=== PATIENT | female | born 2000 | race Caucasian/White ===

== ENCOUNTER 2019-04-12 19:05 | Emergency (ER) | payer BC, SELFPAY ==
[2019-04-12] MEDS: LACTATED RINGERS 1,000 ML 999 ML IV CONT (19:27)
[2019-04-12] MEDS: METOCLOPRAMIDE HCL INJ 10 MG/2 ML VIAL IV PUSH (19:27)
[2019-04-12 19:28] VITALS: BP 140/84; PULSE 99; RESP 20; TEMP 36.3; O2SAT 100
--- NOTE | 2019-04-12 19:49 | ED.NAVMDI ---
HPI - Nausea/Vomiting/Diarrhea General Chief complaint: Nausea/Vomiting/Diarrhea Stated complaint: N/V/D Time Seen by Provider: 04/12/19 19:11 Source: patient and RN notes reviewed Mode of arrival: ambulatory Limitations: no limitations History of Present Illness HPI Narrative: Pt is a 18 y/o female presenting to the ED c/o N/V. Pt states she was seen at this ED recently and was diagnosed with Influenza A. Pt states she has presented back due to not being able to hold down fluids. N/V started earlier this morning. Pt also reports generalized myalgia, chills, and diarrhea, but denies vaginal bleeding, vaginal discharge, TYLER, cough, rhinorrhea, or congestion. Pt states she was prescribed nausea medication but has been unable to take any due to the pharmacy being closed. Pt states she is currently 18 weeks with her 1st . Pt notes she goes to [facility]. Pt denies any other medical problems or previous surgeries. Pt did not get a flu shot this year. Pertinent past history: other (Influenza) Onset (ago): unknown (Earlier this morning) Associated symptoms: myalgias (Generalized), diaphoresis, fever/chills (Chills) and other (Diarrhea) Related Data Allergies Allergy/AdvReac Type Severity Reaction Status Date / Time No Known Allergies Allergy Mild Verified 07/03/10 13:24 Review of Systems Review of Systems: All systems reviewed & are unremarkable except as noted in HPI and below Constitutional: Constitutional: Reports chills ENT: Denies nasal congestion and Denies other (Rhinorrhea) Respiratory: Respiratory: Reports cough Gastrointestinal: Gastrointestinal: Reports diarrhea, Reports nausea and Reports vomiting Genitourinary: Genitourinary: Denies abnormal vaginal bleeding and Denies vaginal discharge Musculoskeletal: Musculoskeletal: Reports myalgias (Generalized) Neurologic: Reports headache(s) [facility] Past Medical History Medical History Healthy adult Surgical History Surgical History No history of previous surgery Social History Social History Smoking status: Never smoker Gender identity (if verbalized by the patient): Female Exam Const: General: no acute distress, alert and ill appearing (Mildly) Nutritional Appearance: obese Orientation/consciousness: oriented x3 Limitations: no limitations HENMT: Mouth: Yes lip normal and Yes moist mucous membranes Resp: Effort & Inspection: normal respiratory effort Auscultation: clear to auscultation bilaterally Cardio: Rate: regular rate Rhythm: regular rhythm GI: Inspection: non-distended GI Palp: Yes soft and No tender Auscultation: normal bowel sounds Skin: General skin exam: normal color Neuro: General: oriented x3 and moves all extremities Cognition (Neuro): normal cognition Speech: normal speech Extrem: General: normal to inspection, full ROM and no clubbing, cyanosis or edema Psych: Mental Status: mental status grossly normal Affect: normal affect Attitude: cooperative Course Course Emergency Course: Patient given Reglan and additional liter of IV fluids. Patient given oral hydration in the emergency department. Patient reports improvement in nausea with Reglan and is able to tolerate oral hydration without further nausea and vomiting. Will send home with prescription for Reglan. Vital Signs Vital signs: Vital Signs Temperature 97.3 F L 04/12/19 19:28 Pulse Rate 99 04/12/19 19:28 Respiratory Rate 04/12/19 19:28 Blood Pressure 140/84 04/12/19 19:28 Pulse Oximetry 100 04/12/19 19:28 Temperature 97.3 F L 04/12/19 19:28 Pulse Rate 99 04/12/19 19:28 Respiratory Rate 04/12/19 19:28 Blood Pressure 140/84 04/12/19 19:28 Pulse Oximetry 100 04/12/19 19:28 Critical Care Time Critical Care Time Critical Care Time: No Discharge Plan Discharge C
[2019-04-12 21:37] VITALS: BP 122/80; PULSE 70; RESP 20; TEMP 37.1; O2SAT 98
--- NOTE | 2019-04-18 11:12 | PC.NURSE ---
LATE ENTRY This note is being entered to document information to the patient's record. The following information was omitted on 04/12/19, by JOHN Robb. Pt received 1L LR per order and completed 1 hr after administration.
== END 2019-04-12 21:38 | disposition home or self-care (01) ==
PROVIDERS: Emergency Provider Emergency Medicine
DX: O99.512 Diseases of the respiratory system complicating pregnancy, second trimester (principal); J10.1 Influenza due to other identified influenza virus with other respiratory manifestations; E86.0 Dehydration; R11.2 Nausea with vomiting, unspecified; Z3A.18 18 weeks gestation of pregnancy
CPT/HCPCS: 96361; 96374; 96375; 99284; J1200; J2765; J7120

== ENCOUNTER 2019-08-12 10:00 | Outpatient (CLI) | payer BC, SELFPAY ==
[2019-08-12 10:31] VITALS: BP 127/72; PULSE 100
[2019-08-12 10:44] LABS: Creatinine Urine 140.7 mg/dL; Total Protein Urine Random 11 mg/dL
[2019-08-12 10:46] VITALS: BP 112/71; PULSE 93
[2019-08-12 10:46] LABS: Basophils Percent Auto 0.4 % (0.2-1.2); Eosinophils Absolute Auto 0.1 K/mm3 (0-0.3); Eosinophils Percent Auto 1.4 % (0-4.4); Hematocrit 35.6 % (37.0-47.0); Hemoglobin 11.6 g/dL (12.0-15.0); Immature Granulocyte Absolute 0.05 K/mm3 (0.00-0.031); Immature Granulocyte Percent A 0.5 % (0-0.5); Lymphocytes Absolute Auto 1.45 K/mm3 (0.9-3.2); Lymphocytes Percent Auto 15.7 % (18.3-44.2); Mean Corpuscular HGB Conc 32.6 g/dl (32-36); Mean Corpuscular Hemoglobin 29.3 pg (26-34); Mean Corpuscular Volume 89.9 fl (80-100); Mean Platelet Volume 11.1 fl (7.4-10.4); Monocytes Absolute Auto 0.4 K/mm3 (0.1-0.6); Monocytes Percent Auto 4.6 % (2.6-8.5); Neutrophils Absolute Auto 7.1 K/mm3 (1.3-6.7); Neutrophils Percent Auto 77.4 % (45.5-73.1); Platelet Count Result 175 k/mm3 (150-375); Red Blood Count 3.96 M/mm3 (4.2-5.4); Red Cell Distribution Width 14.2 % (11.5-14.5); White Blood Count 9.2 K/mm3 (4.5-10.0)
[2019-08-12 10:57] LABS: Alanine Aminotransferase 10 U/L (4-35); Albumin Level 3.7 g/dL (3.5-5.1); Alkaline Phosphatase 87 U/L (38-126); Aspartate Amino Transferase 14 U/L (14-36); Bilirubin,Total 0.1 mg/dL (0.2-1.3); Blood Urea Nitrogen 8 mg/dL (7-17); Calcium 8.7 mg/dL (8.4-10.2); Carbon Dioxide 20 mmol/L (22-30); Chloride 107 mmol/L (98-107); Estimated Glomerular Filt Rate > 60; Glucose 122 mg/dL (65-105); Sodium 135 mmol/L (137-145); Uric Acid 3.2 mg/dL (2.5-7.5)
[2019-08-12 10:57] LABS: Add Urine Microscopic? YES; Appearance Urine Clear (Clear); Bacteria Urine Trace /hpf; Bilirubin Urine Negative (Negative); Blood Urine Negative (Negative); Color Urine Yellow (Yellow); Glucose Urine UA 1+ mg/dL (Negative); Ketones Urine Negative (Negative); Leukocyte Esterase Ur Negative LEU/UL (NEGATIVE); Mucus Urine Rare /lpf; Nitrate Urine Negative (Negative); Protein Urine 1+ mg/dL (Negative); RBC Urine 0-2 /hpf (0-2); Specific Grav Ur 1.025 (1.001-1.035); Squamous Epithelial Cell Urine Few /hpf (Few); Urobilinogen Urine Negative mg/dL (<2.0); WBC Urine 0-3 /hpf (0-3)
[2019-08-12 11:01] VITALS: BP 106/82; PULSE 96
== END 2019-08-12 11:15 | disposition home or self-care (01) ==
LOC: ANHOBOP 10:10 → ANHOBPP 10:10
PROVIDERS: Family Provider Obstetrics & Gynecology; PCP Internal Medicine; Visit Provider Obstetrics & Gynecology
DX: O13.9 Gestational [pregnancy-induced] hypertension without significant proteinuria, unspecified trimester (principal); Z3A.00 Weeks of gestation of pregnancy not specified
CPT/HCPCS: 36415; 59025; 80053; 81001; 82570; 84156; 84550; 85025; 87086; 87088; 99199

== ENCOUNTER 2019-09-01 10:29 | Outpatient (RCR) | payer BC, SELFPAY ==
[2019-09-01 11:09] VITALS: BP 118/71; PULSE 101
== END 2019-10-06 13:43 | disposition home or self-care (01) ==
LOC: ANHOBOP 10:29
PROVIDERS: PCP Internal Medicine; Visit Provider Obstetrics & Gynecology
DX: O26.893 Other specified pregnancy related conditions, third trimester (principal); Z3A.38 38 weeks gestation of pregnancy
CPT/HCPCS: 59025

== ENCOUNTER 2019-09-02 15:33 | Outpatient (CLI) | payer BC, SELFPAY ==
--- NOTE | 2019-09-02 16:20 | PC.NURSE ---
Called Kota Sal CNM with pt status. ROM plus negative. No contraction seen. Reactive tracing. July D/C home and follow up for next scheduled ultrasound to check KOLE.
[2019-09-02 16:25] VITALS: BP 119/63; PULSE 88
== END 2019-09-02 16:45 | disposition home or self-care (01) ==
LOC: ANHOBOP 16:39
PROVIDERS: PCP Internal Medicine; Visit Provider Obstetrics & Gynecology
DX: O41.8X90 Other specified disorders of amniotic fluid and membranes, unspecified trimester, not applicable or unspecified (principal)
CPT/HCPCS: 59025; 84112

== ENCOUNTER 2019-09-06 16:43 | Inpatient (IN) | payer BC, SELFPAY ==
[2019-09-06] VITALS (15 sets, daily range): BP systolic 96–147; BP diastolic 42–102; PULSE 84–94; BMI 49.6
[2019-09-06 17:39] LABS: Basophils Percent Auto 0.4 % (0.2-1.2); Eosinophils Absolute Auto 0.2 K/mm3 (0-0.3); Eosinophils Percent Auto 1.7 % (0-4.4); Hematocrit 38.3 % (37.0-47.0); Hemoglobin 12.5 g/dL (12.0-15.0); Immature Granulocyte Absolute 0.06 K/mm3 (0.00-0.031); Immature Granulocyte Percent A 0.6 % (0-0.5); Lymphocytes Absolute Auto 1.82 K/mm3 (0.9-3.2); Mean Corpuscular HGB Conc 32.6 g/dl (32-36); Mean Corpuscular Hemoglobin 29.3 pg (26-34); Mean Corpuscular Volume 89.7 fl (80-100); Monocytes Absolute Auto 0.6 K/mm3 (0.1-0.6); Monocytes Percent Auto 5.7 % (2.6-8.5); Neutrophils Percent Auto 72.6 % (45.5-73.1); Platelet Count Result 175 k/mm3 (150-375); Red Blood Count 4.27 M/mm3 (4.2-5.4); Red Cell Distribution Width 14.9 % (11.5-14.5); White Blood Count 9.6 K/mm3 (4.5-10.0)
--- NOTE | 2019-09-06 17:39 | LDADM ---
This patient, Norris Kemp, was admitted to Labor/Delivery/Recovery 107 on 09/06/19 at 16:43. Plans for labor, pain management and were discussed with patient. Patient/family oriented to hospital policies and general routines including ID bracelet, bed and alarms, visiting hours, pain management, procedures, bathroom and other care routines, personal items, smoking policy, room service/diet and guest tray routines, infant security routines, and visiting hours. Patient/Family are encouraged to report perceived risks to care and to ask questions if they do not understand what they are told or what they should do. See OBIX for further documentation.
[2019-09-06] MEDS: DINOPROSTONE 10 MG VAG INSERT VAGINAL (17:49)
[2019-09-06] MEDS: LACTATED RINGERS 1,000 ML 125 ML IV CONT (18:30)
[2019-09-06] MEDS: AMPICILLIN 2 GM/NS 100 ML 2 GM/100 ML BAG IVPB (18:30)
--- NOTE | 2019-09-06 19:03 | PC.NURSE ---
see obix for bp reading and notes r/t bp's and pt positions during bp readings. dr curry on unit and bp's reviewed w dr curry, dr cardenas informed that pt needs blood redrawn for type and screen, orders recieved to draw pi labs w type and screen redraw. s chelly cnm managing pt care and is to be called to give cnm pt update.
[2019-09-06 19:46] LABS: Creatinine Urine 148.8 mg/dL; Total Protein Urine Random 8 mg/dL
[2019-09-06 19:47] LABS: Add Urine Microscopic? NO; Appearance Urine Clear (Clear); Bilirubin Urine Negative (Negative); Blood Urine Negative (Negative); Color Urine Yellow (Yellow); Glucose Urine UA Negative (Negative); Ketones Urine Negative (Negative); Leukocyte Esterase Ur Negative LEU/UL (NEGATIVE); Nitrate Urine Negative (Negative); Protein Urine Negative (Negative); Specific Grav Ur 1.025 (1.001-1.035); Urobilinogen Urine Negative mg/dL (<2.0)
[2019-09-06 19:52] LABS: Alanine Aminotransferase 9 U/L (4-35); Albumin Level 3.5 g/dL (3.5-5.1); Alkaline Phosphatase 115 U/L (38-126); Aspartate Amino Transferase 13 U/L (14-36); Bilirubin,Total 0.2 mg/dL (0.2-1.3); Blood Urea Nitrogen 8 mg/dL (7-17); Calcium 8.4 mg/dL (8.4-10.2); Carbon Dioxide 21 mmol/L (22-30); Chloride 108 mmol/L (98-107); Estimated CRCL calculation 187 ml/min; Estimated Glomerular Filt Rate > 60; Glucose 96 mg/dL (65-105); Potassium 3.6 mmol/L (3.4-5.0); Sodium 135 mmol/L (137-145); Uric Acid 3.4 mg/dL (2.5-7.5)
[2019-09-06] MEDS: AMPICILLIN 1 GM/NS 50 ML 1 GM/50 ML BAG IVPB (23:01)
--- NOTE | 2019-09-06 23:20 | WPDOBADMIT ---
Obstetrics - Admit Note Admission Note: record reviewed. No pertinent additions to the history and/or any subsequent changes in the physical findings that are not consistent with the expected course of the were found. MIL 39.1 KOLE, 5 cm, cervadil, anticipate vaginal delivery Additions to the history and/or subsequent changes in the physical findings follow. None.
[2019-09-07] VITALS (291 sets, daily range): BP systolic 91–177; BP diastolic 40–125; PULSE 69–128; TEMP 36.2–37.7; O2SAT 96–100
[2019-09-07] MEDS: AMPICILLIN 1 GM/NS 50 ML 1 GM/50 ML BAG IVPB ×6 (02:28→20:26)
[2019-09-07] MEDS: ONDANSETRON INJ 4 MG/2 ML VIAL IV PUSH ×3 (05:35→23:03)
[2019-09-07] MEDS: OXYTOCIN 30 UNITS/NS 500 ML 30 UNITS/500 ML BAG 6 UNITS IV CONT (07:07)
[2019-09-07] MEDS: LACTATED RINGERS 1,000 ML 125 ML IV CONT ×5 (07:09→23:03)
--- NOTE | 2019-09-07 07:51 | WPDOBADMIT ---
Obstetrics - Admit Note Admission Note: 18 y/o G1 here for induction of labor. History of borderline oligohydramnios. SVE /-2 AROM small amount of clear odorless fluid. record reviewed. No pertinent additions to the history and/or any subsequent changes in the physical findings that are not consistent with the expected course of the were found. Additions to the history and/or subsequent changes in the physical findings follow. None.
[2019-09-07] MEDS: METOCLOPRAMIDE HCL INJ 10 MG/2 ML VIAL IV PUSH (08:15)
--- NOTE | 2019-09-07 11:14 | WPDANESEPP ---
Anes - Eval Pre Procedure Procedure: Labor Epidural Date/Time: 09/07/19 11:14 Surgeon: Aris Preop Diagnosis: Labor Pain Pre Op Diagnosis: iol Patient Data Age: 18 Gender: F Height: 5 ft 2 in Weight: 123.18 kg Last Vital Signs Temp 36.3 C L 09/07/19 09:17 Pulse 81 09/07/19 11:13 BP 147/81 H 09/07/19 11:13 Pulse Ox 97 09/07/19 11:13 Allergies Allergy/AdvReac Type Severity Reaction Status Date / Time No Known Allergies Allergy Mild Verified 07/03/10 13:24 Home Medications Medication Instructions Recorded Confirmed Type [id number] fumarate-FA 1 tablet PO DAILY 08/12/19 09/01/19 History [] ferrous sulfate [Slow Fe] 1 mg PO DAILY 08/12/19 09/01/19 History Laboratory Tests 09/06/19 09/06/19 09/06/19 17:27 17:27 19:24 WBC 9.6 K/mm3 K/mm3 (4.5-10.0) RBC 4.27 M/mm3 M/mm3 (4.2-5.4) Hgb 12.5 g/dL g/dL (12.0-15.0) Hct 38.3 % % (37.0-47.0) MCV 89.7 fl fl (80-100) MCH 29.3 pg pg (26-34) MCHC 32.6 g/dl g/dl (32-36) RDW 14.9 % H % (11.5-14.5) Plt Count 175 k/mm3 k/mm3 (150-375) MPV 11.0 fl H fl (7.4-10.4) Immature Gran % (Auto) 0.6 % H % (0-0.5) Neut % (Auto) 72.6 % % (45.5-73.1) Lymph % (Auto) 19.0 % % (18.3-44.2) [place] % (Auto) 5.7 % % (2.6-8.5) Eos % (Auto) 1.7 % % (0-4.4) Baso % (Auto) 0.4 % % (0.2-1.2) Lymph # (Auto) 1.82 K/mm3 K/mm3 (0.9-3.2) [place] # (Auto) 0.6 K/mm3 K/mm3 (0.1-0.6) Eos # (Auto) 0.2 K/mm3 K/mm3 (0-0.3) Baso # (Auto) 0.0 K/mm3 K/mm3 (0.0-0.1) Abs Immat Gran (auto) 0.06 K/mm3 H K/mm3 (0.00-0.031) Absolute Neuts (auto) 7.0 K/mm3 H K/mm3 (1.3-6.7) Absolute Nucleated RBC 0.0 K/mm3 K/mm3 (0.0-0.012) Nucleated RBC % 0.0 % % (0.0-0.2) Sodium Potassium Chloride Carbon Dioxide BUN Creatinine Estim Creat Clear Calc Estimated GFR Glucose Uric Acid Calcium Total Bilirubin AST ALT Alkaline Phosphatase Total Protein Albumin Urine Color Urine Appearance Urine pH Ur Specific [place] Urine Protein Urine Glucose (UA) Urine Ketones Ur Blood (Man) Urine Nitrate Urine Bilirubin Urine Urobilinogen Ur Leukocyte Esterase U Random Total Protein Urine Creatinine RPR Pending Blood Type A Positive Antibody Screen Negative 09/06/19 09/06/19 09/06/19 19:24 19:24 19:24 WBC RBC Hgb Hct MCV MCH MCHC RDW Plt Count MPV Immature Gran % (Auto) Neut % (Auto) Lymph % (Auto) [place] % (Auto) Eos % (Auto) Baso % (Auto) Lymph # (Auto) [place] # (Auto) Eos # (Auto) Baso # (Auto) Abs Immat Gran (auto) Absolute Neuts (auto) Absolute Nucleated RBC Nucleated RBC % Sodium 135 mmol/L L mmol/L (137-145) Potassium 3.6 mmol/L mmol/L (3.4-5.0) Chloride 108 mmol/L H mmol/L (98-107) Carbon Dioxide 21 mmol/L L mmol/L (22-30) BUN 8 mg/dL mg/dL (7-17) Creatinine 0.50 mg/dL L mg/dL (0.7-1.0) Estim Creat Clear Calc 187 ml/min ml/min Estimated GFR > 60 (59 - ) Glucose 96 mg/dL mg/dL (65-105) Uric Acid 3.4 mg/dL mg/dL (2.5-7.5
[2019-09-07 11:35] LABS: Rapid Plasma Reagin Non-Reactive (NonReactive)
[2019-09-08] VITALS (205 sets, daily range): BP systolic 59–204; BP diastolic 26–178; PULSE 73–208; RESP 16–20; TEMP 36.3–37.7; O2SAT 95–100
[2019-09-08] MEDS: SODIUM CHLORIDE 0.9% IV 300 ML 600 ML I-UTERINE (00:11)
[2019-09-08] MEDS: AMPICILLIN 1 GM/NS 50 ML 1 GM/50 ML BAG IVPB ×2 (00:31→04:50)
[2019-09-08] MEDS: LACTATED RINGERS 1,000 ML 125 ML IV CONT ×2 (02:04→10:39)
--- NOTE | 2019-09-08 08:31 | PM.IMHP ---
H&P: HPI History of Present Illness Chief complaint: iol Narrative: Norris Kemp is a 18 year old female 39 weeks gestation, Failed induction, and Failure of fetus to descend. is complicated by obesity and oligohydramnios. Pt is currently afebrile. Plan to move forward with section. Dr. Hurst notified. Review of Systems Review of Systems: All systems reviewed & are unremarkable except as noted in HPI and below PMFSH Past Medical History Medical History Healthy adult Surgical History Surgical History No history of previous surgery Family History Family History Grandparent Diabetes mellitus Grandparent Cancer of lung Social History Social History Years smoked: 2 Smoking status: Former smoker Tobacco type: cigarettes Second hand tobacco smoke exposure: No Substance use: never Gender identity (if verbalized by the patient): Female Spiritual care concerns: No Meds Home Medications and Allergies Home Medications Medication Instructions Recorded Confirmed Type [id number] fumarate-FA 1 tablet PO DAILY 08/12/19 09/01/19 History [] ferrous sulfate [Slow Fe] 1 mg PO DAILY 08/12/19 09/01/19 History Allergies Allergy/AdvReac Type Severity Reaction Status Date / Time No Known Allergies Allergy Mild Verified 07/03/10 13:24 Vital Signs Vital Signs - 24 hr 09/07/19 08:46 09/07/19 09:01 09/07/19 09:16 Temperature Pulse Rate 80 82 81 Blood Pressure 125/68 135/84 142/88 H Pulse Oximetry 09/07/19 09:17 09/07/19 09:31 09/07/19 09:46 Temperature 36.3 C L Pulse Rate 92 91 Blood Pressure 155/92 H 126/92 H Pulse Oximetry 09/07/19 10:01 09/07/19 10:13 09/07/19 10:15 Temperature Pulse Rate 87 87 Blood Pressure 123/73 143/89 H Pulse Oximetry 100 09/07/19 10:16 09/07/19 10:18 09/07/19 10:20 Temperature Pulse Rate 87 77 78 Blood Pressure 146/91 H 137/84 139/71 Pulse Oximetry 98 09/07/19 10:21 09/07/19 10:23 09/07/19 10:25 Temperature Pulse Rate 79 88 87 Blood Pressure 141/73 H 145/73 H 135/81 Pulse Oximetry 100 09/07/19 10:27 09/07/19 10:28 09/07/19 10:29 Temperature Pulse Rate 86 87 Blood Pressure 146/74 H 151/90 H Pulse Oximetry 99 09/07/19 10:31 09/07/19 10:33 09/07/19 10:35 Temperature Pulse Rate 89 81 96 Blood Pressure 152/76 H 145/67 H 146/83 H Pulse Oximetry 98 09/07/19 10:37 09/07/19 10:38 09/07/19 10:39 Temperature Pulse Rate 96 86 Blood Pressure 150/86 H 150/76 H Pulse Oximetry 99 09/07/19 10:41 09/07/19 10:43 09/07/19 10:45 Temperature Pulse Rate 78 88 83 Blood Pressure 151/79 H 137/80 142/78 H Pulse Oximetry 98 09/07/19 10:47 09/07/19 10:48 09/07/19 10:49 Temperature Pulse Rate 76 69 Blood Pressure 146/73 H 145/77 H Pulse Oximetry 97 09/07/19 10:51 09/07/19 10:53 09/07/19 10:55 Temperature Pulse Rate 75 72 73 Blood Pressure 148/69 H 145/75 H 142/72 H Pulse Oximetry 98 09/07/19 10:57 09/07/19 10:58 09/07/19 10:59 Temperature Pulse Rate 79 71 Blood Pressure 142/79 H 141/76 H Pulse Oximetry 98 09/07/19 11:01 09/07/19 11:03 09/07/19 11:05 Temperature Pulse Rate 77 72 72 Blood Pressure 141/74 H 141/68 H 136/71 Pulse Oximetry 98 09/07/19 11:07 09/07/19 11:08 09/07/19 11:09 Temperature Pulse Rate 76 72 Blood Pressure 132/82 132/73 Pulse Oximetry 98 09/07/19 11:11 09/07/19 11:13 06/08/20 11:18 Temperature Pulse Rate 72 81 Blood Pressure 141/79 H 147/81 H Pulse Oximetry 97 98 09/07/19 11:20 09/07/19 11:21 09/07/19 11:23 Temperature 36.2 C L Pulse Rate 85 Blood Pressure 145/87 H Pulse Oximetry 97 09/07/19 11:28 09/07/19 11:31
--- NOTE | 2019-09-08 09:47 | PM.PROC ---
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 She was prepped and draped in the dorsal supine position with leftward tilt after induction of spinal anesthetic. When anesthesia was found to be adequate a low-transverse skin incision was made and carried down to the level the fascia with the knife. The fascial incision was made at the midline with a scalpel. The fascial incision was extended laterally with Zarate scissors. The fascia was tented upward superior and inferior with Rose Mary clamps. The rectus muscles were dissected off bluntly. The rectus muscles at the midline. The preperitoneal fat was dissected bluntly at the superior aspect of the separate the rectus muscles. The peritoneal cavity was entered bluntly in the same area. The peritoneal incision was extended superior and inferior with good visualization of bladder. Bladder blade was inserted. A low-transverse incision was made on the uterus with the scalpel. It was carried down the level of the amniotic cavity with a knife. The amniotic cavity bluntly. The uterine incision was made laterally with blunt traction. The infant was delivered. The cord was clamped and cut. The infant was handed off to waiting pediatric staff. Cord bloods were obtained. The placenta was removed manually. The uterus was exteriorized. Uterus cleared of all clots and debris. Uterus closed in 0 Vicryl in a running locked fashion. An imbricating layer of 0 Vicryl was also placed on the to bolster the closure. The uterus was returned to the abdomen. The gutters were cleared of all clots and debris. The fascia was closed 0 Vicryl in a running fashion. Subcutaneous tissue was irrigated and bleeding areas were cauterized. The skin was closed with subcuticular absorbable betty. The incision was covered with derma castellano. The patient tolerated the procedure well. She was taken recovery room stable condition. Sponge, lap, needle counts were correct x2. Anesthesia: epidural Surgeon: Aroldo Hurst MD Estimated blood loss (mL): 650 Drains: No Packing: No Pathology: yes Complications: No immediate complications Condition: stable Disposition: floor Findings: Normal maternal anatomy. Average size infant with normal Apgars. No gross evidence of abruption. Malposition of the head-ROP
[2019-09-08] MEDS: OXYTOCIN 30 UNITS/NS 500 ML 30 UNITS/500 ML BAG 125 UNITS IV CONT (11:45)
--- NOTE | 2019-09-08 13:30 | PC.NURSE ---
Consulted with patient, mother reports infant fed for first feeding using the nipple shield. would not open or draw nipple in. Discussed nipple shield precautions and possible complications. Instructions given on application and cleaning of shield. Patient able to return demonstration on proper application of shield. Discussed the need to initiate pumping if continues to nurse with the shield. Patient verbalizes understanding. Reviewed infant feeding cues, frequencies, duration of feedings, feeding elimination flow sheet, and signs of adequate intake. Demonstrated stimulation techniques to wake infant for feeding. Assisted with to breast. attempted first without shield and was unable to latch. Reviewed positioning/alignment in cross cradle, holding breast in U hold and guided asymmetrical latch on. Infant was able to latch correctly. Infant nursed eagerly with steady draws and occasional swallowing for short bursts followed with long pausing. Reviewed signs of a correct latch, effective nursing and suck swallow ratio. was able to maintain latch without discomfort to mother. Nipple care reviewed. Advised to stimulate during entire feeding to keep awake and nursing. Discussed supplementation and initiating with next feeding. Instructed mother to call out for RN assistance if she is unable to latch for feeding or she has discomfort with nursing. Instructed feeding should be initiated three hours from start of last feeding or if feeding cues are noted before. Mother voiced understanding of information shared.
--- NOTE | 2019-09-08 14:30 | PC.NURSE ---
Breast pump provided due to ineffective feeding/nipple shield use. Instructions given on breast pump care and usage, pumping schedule, nipple care, and collection and storage of breast milk. Encouraged [id number], breast massage and manual expression to stimulate supply. Assessed patient for correct flange size, placement and draw. Patient verbalizes and demonstrates understanding of instructions.
[2019-09-08] MEDS: KETOROLAC 30 MG/ML VIAL (*BKC) IV PUSH (20:19)
[2019-09-09 04:00] VITALS: BP 97/56; PULSE 86; RESP 16; TEMP 36.9; O2SAT 99
[2019-09-09 04:15] LABS: Basophils Absolute Auto 0.1 K/mm3 (0.0-0.1); Basophils Percent Auto 0.5 % (0.2-1.2); Eosinophils Absolute Auto 0.1 K/mm3 (0-0.3); Eosinophils Percent Auto 0.8 % (0-4.4); Hematocrit 29.7 % (37.0-47.0); Hemoglobin 9.7 g/dL (12.0-15.0); Immature Granulocyte Absolute 0.09 K/mm3 (0.00-0.031); Immature Granulocyte Percent A 0.8 % (0-0.5); Lymphocytes Absolute Auto 1.58 K/mm3 (0.9-3.2); Lymphocytes Percent Auto 14.4 % (18.3-44.2); Mean Corpuscular HGB Conc 32.7 g/dl (32-36); Mean Corpuscular Hemoglobin 29.5 pg (26-34); Mean Corpuscular Volume 90.3 fl (80-100); Mean Platelet Volume 10.9 fl (7.4-10.4); Monocytes Absolute Auto 0.7 K/mm3 (0.1-0.6); Monocytes Percent Auto 6.2 % (2.6-8.5); Neutrophils Absolute Auto 8.5 K/mm3 (1.3-6.7); Neutrophils Percent Auto 77.3 % (45.5-73.1); Platelet Count Result 147 k/mm3 (150-375); Red Blood Count 3.29 M/mm3 (4.2-5.4); Red Cell Distribution Width 14.6 % (11.5-14.5)
[2019-09-09] MEDS: IBUPROFEN 600 MG TABLET PO ×3 (05:08→23:38)
[2019-09-09 07:25] VITALS: BP 103/58; PULSE 95; RESP 18; TEMP 36.5; O2SAT 99
--- NOTE | 2019-09-09 07:34 | PM.OBPNVD ---
OB - PN: Subj Subjective Date/time seen: 09/09/19 07:34 Patient comments: no complaints, pain well controlled, tolerating diet and flatus present OB - PN: Obj Data Labs CBC & Chem 7: 09/09/19 03:52 09/06/19 19:24 Labs: Laboratory Results - last 24 hr 09/09/19 03:52 WBC 11.0 H RBC 3.29 L Hgb 9.7 L Hct 29.7 L MCV 90.3 MCH 29.5 MCHC 32.7 RDW 14.6 H Plt Count 147 L MPV 10.9 H Immature Gran % (Auto) 0.8 H Neut % (Auto) 77.3 H Lymph % (Auto) 14.4 L [place] % (Auto) 6.2 Eos % (Auto) 0.8 Baso % (Auto) 0.5 Lymph # (Auto) 1.58 [place] # (Auto) 0.7 H Eos # (Auto) 0.1 Baso # (Auto) 0.1 Abs Immat Gran (auto) 0.09 H Absolute Neuts (auto) 8.5 H Absolute Nucleated RBC 0.0 Nucleated RBC % 0.0 % Immature Plt Fraction 3.0 OB - PN A/P Plan day: 1 Comments: Post Op LTCS - no problems, routine recovery Time Spent With Patient Time: Total time spent is greater than 50% in coordination of care (as documented) at patient's floor/unit and/or counseling patient: Exam Const: General: cooperative, healthy appearing, comfortable and no acute distress Resp: Auscultation: no crackles, no rales, no rhonchi and no wheezes Cardio: Rhythm: regular rhythm Heart sounds: no click and no murmurs GI: Inspection: non-distended Auscultation: normal bowel sounds Extrem: General: normal to inspection, no pedal edema and no calf tenderness
--- NOTE | 2019-09-09 08:51 | WPDANLDPN2 ---
Anes-Prog Note L&D Date/Time: 09/09/19 08:51 Comfortable throughout: section Neuraxial method: epidural Epidural/Spinal procedure site: clean & non-tender Neuro status: Neuro function grossly intact. Cardiovascular status: normal Respiratory status: normal Airway patency: baseline Mental status: baseline Post-Op hydration status: normal Vital Signs: Last Vital Signs Temp 36.9 C 09/09/19 04:00 Pulse 86 09/09/19 04:00 Resp 16 09/09/19 04:00 BP 97/56 L 09/09/19 04:00 Pulse Ox 99 09/09/19 04:00 I/O: Intake & Output 09/08/19 09/09/19 09/09/19 23:59 07:59 15:59 Intake Total 800 Output Total 1250 Balance -450 Post-procedural complaints: none Patient feedback: Patient satisfied with anesthetic care.
--- NOTE | 2019-09-09 08:51 | WPDANLDNPN2 ---
Anes-Prog Note L&D-Neuraxial Date/Time: 09/09/19 08:51 Neuraxial medications: epidural PF morphine Opiod-related complaints: none Patient feedback: Patient satisfied with post-operative pain management.
[2019-09-09] MEDS: DOCUSATE SODIUM 100 MG CAPSULE PO (09:50)
[2019-09-09] MEDS: POLYSACCHARIDE IRON COMPLEX 150 MG CAPSULE PO (09:50)
[2019-09-09] MEDS: MULTIVIT/MIN/PREN/FOL AC/IRON TABLET 1 TAB PO (09:50)
[2019-09-09 19:30] VITALS: BP 119/73; PULSE 87; RESP 12; TEMP 36.7
[2019-09-10] MEDS: IBUPROFEN 600 MG TABLET PO (07:09)
[2019-09-10] MEDS: POLYSACCHARIDE IRON COMPLEX 150 MG CAPSULE PO (07:12)
[2019-09-10] MEDS: MULTIVIT/MIN/PREN/FOL AC/IRON TABLET 1 TAB PO (07:12)
--- NOTE | 2019-09-10 08:04 | P.PNOB_ITS ---
OB - PN: Subj Subjective Date/time seen: 09/10/19 08:04 Patient comments: no complaints, pain well controlled, incisional pain, tolerating diet and flatus present OB - PN: Obj Data Labs CBC & Chem 7: 09/09/19 03:52 09/06/19 19:24 OB - PN A/P Plan day: 2 Plan: routine care Comments: POD#2 LTCS - no problems, To D/C Time Spent With Patient Time: Total time spent is greater than 50% in coordination of care (as d ocumented) at patient's floor/unit and/or counseling patient: Exam Const: General: comfortable, no acute distress and alert Resp: Effort & Inspection: normal respiratory effort Auscultation: no crackles, no rales and no rhonchi Cardio: Rate: regular rate Heart sounds: no click, no murmurs and no rubs GI: Inspection: non-distended GI Palp: No Tenderness to palpation present (GI) Auscultation: normal bowel sounds Other: Incision - CDI Extrem: General: normal to inspection, no pedal edema and no calf tenderness
--- NOTE | 2019-09-10 08:05 | PM.OBDSVD ---
DS: Discharge Diagnosis Discharge Diagnosis (1) Failure to progress in labor: Code(s): O62.2 - Other uterine inertia Status: Acute (2) delivery delivered: Code(s): O82 - Encounter for delivery without indication Status: Acute OB - DS: Summary OB Procedures : None OB Procedures Intrapartum: OB Procedures: : None Peripartum Data Procedures: Procedures Operation Date: 09/08/19 09:00 Actual Procedures Side Surgeon p Section Not Applicable Aroldo Hurst MD Time Spent with Patient Time attestation: Total time spent providing and/or coordinating discharge services: DS: Data Data Completed and Pending Pending studies at discharge: Pending at discharge 09/08/19 09:33 Surgical [PTH] Routine Discharge Plan Discharge Patient Disposition: Home Health Service Patient Instructions: Antibiotic Form Stand Alone Forms: General Discharge Information Follow-up/Referrals: Aroldo Hurst MD [Physician] - Discharge Medications: New hydrocodone-acetaminophen 5-325 mg tablet 1 - 2 tablet PO Q4H PRN (Reason: pain) Qty: 25 RF: 0 Continued 28-800 mg-mcg Tablet 1 tablet PO DAILY RF: 0 Slow Fe 142 mg (45 mg iron) Tablet Extended Release 1 mg PO DAILY RF: 0 Date of admission: 09/06/19 16:43 Primary Care Provider: Merle,Gomez Silva Admitting Provider: Aroldo Hurst Attending physician on admission: Aroldo Hurst
[2019-09-10 08:25] VITALS: BP 94/56; PULSE 89; RESP 18; TEMP 36.2; O2SAT 99
--- NOTE | 2019-09-10 09:00 | PC.NURSE ---
Consult with pt., mother states she has decided to pump and bottle feeding only. Reviewed instructions on breast pump care and usage, pumping schedule, nipple care, and collection and storage of breast milk. Encouraged [id number], breast massage and manual expression to stimulate supply. Suggested mother pump 15-20 minutes each session every 3 hours until milk is well established. Mother is feeding as required and waking to feed if needed. Infant is currently meeting outcomes for weight, output, jaundice and feeding frequencies. Mother states she feels confident to continue pumping and bottle feeding at home. Reviewed transition to breast milk, signs of adequate intake, and engorgement/relief. Instructed to call ICP if intake/output less than required. Reviewed regular medications mother is taking. Information provided per [facility]. Reviewed community resources on the [facility] website and in the Mom/Baby guide. Information on outpatient services provided. Mother has no further questions at this time.
[2019-09-10] MEDS: TETANUS,DIPHTHERIA,AC PERTUSSIS ADULT (0.5 ML) BOOSTRIX IM (10:30)
--- NOTE | 2019-09-10 11:36 | PC.NURSE ---
Patient viewed the discharge video Mother & Baby Care, The First Two Weeks . Patient was given the opportunity and encouraged to ask questions. Patient verbalized understanding of information shared and has been given the mother/baby guide for home reference.
[2019-09-11 08:38] VITALS: BP 123/86; PULSE 80; RESP 20
== END 2019-09-10 12:23 | disposition home or self-care (01) | DRG 786 ==
LOC: ANHLDR 17:18 → ANHOB2 09-08 12:24
PROVIDERS: Admitting Provider Obstetrics & Gynecology; PCP Internal Medicine; Visit Provider Obstetrics & Gynecology
PROC: 10D00Z1 Extraction of Products of Conception, Low, Open Approach (ICD-10-PCS; CPT 59514; principal; 2019-09-08 09:00)
DX: O41.03X0 Oligohydramnios, third trimester, not applicable or unspecified (principal); O41.1230 Chorioamnionitis, third trimester, not applicable or unspecified; Z37.0 Single live birth; Z3A.39 39 weeks gestation of pregnancy; O99.214 Obesity complicating childbirth; E66.01 Morbid (severe) obesity due to excess calories; O62.0 Primary inadequate contractions; O32.4XX0 Maternal care for high head at term, not applicable or unspecified; O62.2 Other uterine inertia; O99.824 Streptococcus B carrier state complicating childbirth
CPT/HCPCS: 36415; 80053; 81003; 82570; 84156; 84550; 85025; 85055; 86592; 86850; 86900; 86901; 87086; 87088; 88307; 90715; A9270; J0131; J0290; J1200; J1885; J2175; J2274; J2405; J2590; J2765; J2795; J3010; J7030; J7120

== ENCOUNTER 2021-10-07 11:43 | Outpatient (CLI) | payer BC, SELFPAY ==
[2021-10-07 12:08] LABS: Hematocrit 34.3 % (37.0-47.0); Hemoglobin 10.9 g/dL (12.0-15.0); Mean Corpuscular HGB Conc 31.8 g/dl (32-36); Mean Corpuscular Hemoglobin 27.7 pg (26-34); Mean Corpuscular Volume 87.1 fl (80-100); Mean Platelet Volume 10.7 fl (7.4-10.4); Platelet Count Result 159 k/mm3 (150-375); Red Blood Count 3.94 M/mm3 (4.2-5.4); Red Cell Distribution Width 15.5 % (11.5-14.5); White Blood Count 8.2 K/mm3 (4.5-10.0)
[2021-10-09 05:56] LABS: Rapid Plasma Reagin Non-Reactive (NonReactive)
== END 2021-10-07 11:44 | disposition home or self-care (01) ==
LOC: ANHLAB 11:46
PROVIDERS: PCP Internal Medicine; Visit Provider Obstetrics & Gynecology
DX: Z34.93 Encounter for supervision of normal pregnancy, unspecified, third trimester (principal); Z3A.00 Weeks of gestation of pregnancy not specified
CPT/HCPCS: 36415; 85027; 86592; 86850; 86900; 86901

== ENCOUNTER 2021-10-09 10:00 | Inpatient (IN) | payer BC, SELFPAY ==
--- NOTE | 2021-10-06 14:18 | PC.NURSE ---
Verified with OR schedule and patient--C?S on 10/09/21 at 1200 Patient given requisition for pre-op lab draw on 10/07/21
[2021-10-09] VITALS (70 sets, daily range): BP systolic 62–131; BP diastolic 33–91; PULSE 64–89; RESP 13–18; TEMP 36.3–36.8; O2SAT 86–100; BMI 51.6
--- OUTSIDE RECORDS SUMMARY | 2021-10-09 10:04 | XMS_ITS ---
:2000 Author Care Team Providers Name Role Phone KENYA RENDON Primary Care Provider [phone] Allergies Code Code System Name Reaction Severity Status Onset NKDA ? Medications Name Status Start Date Stop Date ? ? amoxicillin 500 mg capsule Completed ? 03/16 azithromycin 250 mg tablet Completed ? 03/16 clotrimazole-betamethasone 1 %-0.05 % topical cream Completed ? 03/16/2021 cyclobenzaprine 5 mg tablet Completed ? 03/01 ferrous gluconate 324 mg (37.5 mg iron) tablet Active ? Not available ferrous gluconate 324 mg (38 mg iron) tablet Active ? Not available Take 1 tablet every day by oral route as directed. Flintstones Complete chewable tablet Active ? Not available Take by oral route. hydrocodone 5 mg-acetaminophen 325 mg tablet Completed ? 03/16/2021 iron Completed ? 06/01/2020 Junel FE 1.5/30 (28) 1.5 mg-30 mcg (21)/75 mg (7) tablet Complet ed ? 06/01/2020 Junel Fe 24 1 mg-20 mcg (24)/75 mg (4) tablet Completed ? 06/01/2020 loratadine 10 mg tablet Completed ? 06/02/19 21 metoclopramide 10 mg tablet Completed ? 05/2020 oseltamivir 75 mg capsule Completed ? 2020 prednisone 20 mg tablet Completed ? 03/16/20 21 Completed ? 04/13/2021 + DHA Completed ? 06/01/2020 28 mg-800 mcg tablet Completed ? promethazine 12.5 mg tablet Completed ? 05/2020 Slynd 4 mg (28) tablet Completed ? Take 1 tablet every day by oral route. Problems Name Status Onset Date Source ? Hemorrhagic Complication of Unknown 01/28/2019 History Gestation Less than
--- OUTSIDE RECORDS SUMMARY | 2021-10-09 10:04 | XMS_ITS | Encounter Summary ---
:2000 Author Care Team Providers Name Role Phone Gomez Bloom Primary Care Provider [phone] Reason for Visit OB visit Assessment and Plan Assessment Note Patient is ___weeks . Discussed plan. 1. Routine care Discussion Note: None recorded.Patient educational handouts: No information available. Plan of Care Reminders Provider Appointments Surg Post Op 10/19/2021 9:15AM Conner Hurst MD Lab None recorded. ? ? Referral None recorded. ? ? Procedures None recorded. ? ? Surgeries None recorded. ? ? Imaging None recorded. ? ? Medications Name Start Date ? ? ferrous gluconate 324 mg (37.5 mg iron) tablet ? TAKE 1 TABLET BY MOUTH EVERY DAY DIRECTED ferrous gluconate 324 mg (38 mg iron) tablet ? Take 1 tablet every day by oral route as directed. Flintstones Complete chewable tablet ? Take by oral route. Medications Administered None recorded. Vitals Height Weight BMI Blood Pressure 5 ft 2.5 in 284 lbs 51.1 kg/m2 117/81 mm[Hg] Results Lab Results None recorded. Allergies Code Code System Name Reaction Severity Onset NKDA ? ? ? Problems Name Status Onset Date Source ? Active 04/13/2021 ? Procedures Date Name Performed by ? 09/08/2019 Section Information not avai lable 04/01/2018 Extraction of [place] Tooth Information n ot available 09/05/2021 Non-stress Test [place] [address] [address]
--- OUTSIDE RECORDS SUMMARY | 2021-10-09 10:04 | XMS_ITS | Encounter Summary ---
:2000 Author Care Team Providers Name Role Phone Gomez Bloom Primary Care Provider [phone] Reason for Visit None recorded. Assessment and Plan 1. Maternal obesity complicating pregna ncy, childbirth and the puerperium, antepartum ? non-stress test Discussion Note: None recorded.Patient educational handouts: No information available. Plan of Care Reminders Provider Appointments Surg Post Op 10/19/2021 9:15AM Conner Hurst MD Lab None recorded. ? ? Referral None recorded. ? ? Procedures None recorded. ? ? Surgeries None recorded. ? ? Imaging Non-stress Test 09/28/2021 [place] Medications Name Start Date ? ? ferrous gluconate 324 mg (37.5 mg iron) tablet ? TAKE 1 TABLET BY MOUTH EVERY DAY DIRECTED ferrous gluconate 324 mg (38 mg iron) tablet ? Take 1 tablet every day by oral route as directed. Flintstones Complete chewable tablet ? Take by oral route. Medications Administered None recorded. Vitals None recorded. Results Lab Results None recorded. Allergies Code Code System Name Reaction Severity Onset NKDA ? ? ? Problems Name Status Onset Date Source ? Active 04/13/2021 ? Procedures Date Name Performed by ? 09/08/2019 Section Information not avai lable 04/01/2018 Extraction of [place] Tooth Information n ot available 09/05/2021 Non-stress Test [place] [address] [place] [address]
--- OUTSIDE RECORDS SUMMARY | 2021-10-09 10:04 | XMS_ITS | Encounter Summary ---
:2000 Author Care Team Providers Name Role Phone Gomez Bloom Primary Care Provider [phone] Reason for Visit OB visit Assessment and [...] BMI Blood Pressure 5 ft 2.5 in 283 lbs 50.9 kg/m2 128/78 mm[Hg] Results Lab Results None recorded. Allergies Code Code System Name Reaction Severity Onset NKDA ? ? ? Problems Name Status Onset Date Source ? Active 04/13/2021 ? Procedures Date Name Performed by ? 09/08/2019 Section Information not avai lable 04/01/2018 Extraction of [place] Tooth Information n ot available 08/24/2021 , Obstetric, Follow-up [place] [address] [address]
--- OUTSIDE RECORDS SUMMARY | 2021-10-09 10:05 | XMS_ITS | Encounter Summary ---
:2000 Author Care Team Providers Name Role Phone Gomez Bloom Primary Care Provider [phone] Reason for Visit None recorded. Assessment and [...] None recorded. ? ? Imaging Non-stress Test 09/21/2021 [facility] Medications Name Start Date ? ? ferrous [...] Information not avai lable 04/01/2018 Extraction of [place] Tooth Information n ot available 08/24/2021 , Obstetric, Follow-up [facility] [address] [place] [address]
--- OUTSIDE RECORDS SUMMARY | 2021-10-09 10:05 | XMS_ITS | Encounter Summary ---
:2000 Author Care Team Providers Name Role Phone Gomez Bloom Primary Care Provider [phone] Reason for Visit OB visit Assessment and Plan Assessment Note Patient is ___weeks . Discussed plan. 1. Uterine size for dates discrepancy ? US, obstetric, 3rd trimester Discussion Note: None recorded.Patient educational handouts: No information available. Plan of Care Reminders Provider Appointments Surg Post Op 10/19/2021 Conner mckee MD 9:15AM Lab None recorded. ? ? Referral None recorded. ? ? Procedures None recorded. ? ? Surgeries None recorded. ? ? Imaging US, Obstetric, 3Rd 08/10/2021 [place] Trimester Medications Name Start Date ? ? ferrous [...] BMI Blood Pressure 5 ft 2.5 in 277 lbs 49.9 kg/m2 118/80 mm[Hg] Results Lab Results None recorded. Allergies Code Code System Name Reaction Severity Onset NKDA ? ? ? Problems Name Status Onset Date Source ? Active 04/13/2021 ? Procedures Date Name Performed by ? 09/08/2019 Section Information not sandra hernandez
--- OUTSIDE RECORDS SUMMARY | 2021-10-09 10:05 | XMS_ITS | Encounter Summary ---
:2000 Author Care Team Providers Name Role Phone Gomez Bloom Primary Care Provider [phone] Reason for Visit OB visit Assessment and [...] BMI Blood Pressure 5 ft 2.5 in 278 lbs 50 kg/m2 130/83 mm[Hg] Results Lab Results None recorded. Allergies Code Code System Name Reaction Severity Onset NKDA ? ? ? Problems Name Status Onset Date Source ? Active 04/13/2021 ? Procedures Date Name Performed by ? 09/08/2019 Section Information not avai lable 04/01/2018 Extraction of [place] Tooth Information n ot available 06/29/2021 , Obstetric, Follow-up [place] [address] [address]
--- OUTSIDE RECORDS SUMMARY | 2021-10-09 10:05 | XMS_ITS | Encounter Summary ---
:2000 Author Care Team Providers Name Role Phone Gomez Bloom Primary Care Provider [phone] Reason for Visit None recorded. Assessment and Plan 1. condition affecting obstetrica l care of mother ? US, obstetric, biophysical profile Discussion Note: None recorded.Patient educational handouts: No information available. Plan of Care Reminders Provider Appointments Surg Post Op 10/19/2021 Conner mckee MD 9:15AM Lab None recorded. ? ? Referral None recorded. ? ? Procedures None recorded. ? ? Surgeries None recorded. ? ? Imaging US, Obstetric, Biophysical 09/14/2021 [facility] Profile Medications Name Start Date ? ? ferrous [...] Information not avai lable 04/01/2018 Extraction of [place] Tooth Information n ot available 08/24/2021 US, Obstetric, Follow-up [place] [address]
--- OUTSIDE RECORDS SUMMARY | 2021-10-09 10:05 | XMS_ITS | Encounter Summary ---
:2000 Author Care Team Providers Name Role Phone Gomez Bloom Primary Care Provider [phone] Reason for Visit None recorded. Assessment and [...] None recorded. ? ? Imaging Non-stress Test 09/05/2021 [facility] Medications Name Start Date ? ? ferrous [...] Information not avai lable 04/01/2018 Extraction of [place] Tooth Information n ot available 08/10/2021 US, Obstetric, 3Rd Trimester [facility] [address] [place] [address]
--- OUTSIDE RECORDS SUMMARY | 2021-10-09 10:05 | XMS_ITS | Encounter Summary ---
:2000 Author Care Team Providers Name Role Phone Gomez Bloom Primary Care Provider [phone] Reason for Visit OB visit Assessment and Plan Assessment Note Patient is ___weeks . Discussed plan. 1. section following previous section ? section (SURG) Discussion Note: None recorded.Patient educational handouts: No information available. Plan of Care Reminders Provider Appointments Surg Post Op 10/19/2021 9:15AM Conner Hurst MD Lab None recorded. ? ? Referral None recorded. ? ? Procedures None recorded. ? ? Surgeries Section (SURG) 10/09/2021 [facility] None recorded. ? ? Medications Name [...] BMI Blood Pressure 5 ft 2.5 in 276 lbs 49.7 kg/m2 123/81 mm[Hg] Results Lab Results None recorded. Allergies Code Code System Name Reaction Severity Onset NKDA ? ? ? Problems Name Status Onset Date Source ? Active 04/13/2021 ? Procedures Date Name Performed by ? 09/08/2019 Section Information not avai lable 04/01/2018 [facility]
--- OUTSIDE RECORDS SUMMARY | 2021-10-09 10:05 | XMS_ITS | Encounter Summary ---
:2000 Author Care Team Providers Name Role Phone Gomez Bloom Primary Care Provider [phone] Reason for Visit OB visit Assessment and [...] BMI Blood Pressure 5 ft 2.5 in 280 lbs 50.4 kg/m2 120/81 mm[Hg] Results Lab Results None recorded. Allergies Code Code System Name Reaction Severity Onset NKDA ? ? ? Problems Name Status Onset Date Source ? Active 04/13/2021 ? Procedures Date Name Performed by ? 09/08/2019 Section Information not avai lable 04/01/2018 Extraction of [place] Tooth Information n ot available 08/24/2021 , Obstetric, Follow-up [place] [address] [address]
--- NOTE | 2021-10-09 10:42 | LDADM ---
This patient, Norris Kemp, was admitted to Labor/Delivery/Recovery 119 on 10/09/21 at 10:00. Plans for , pain management and were discussed with patient. Patient/family oriented to hospital policies and general routines including ID bracelet, bed and alarms, visiting hours, pain management, procedures, bathroom and other care routines, personal items, smoking policy, room service/diet and guest tray routines, infant security routines, and visiting hours. Patient/Family are encouraged to report perceived risks to care and to ask questions if they do not understand what they are told or what they should do. See OBIX for further documentation.
[2021-10-09] MEDS: LACTATED RINGERS 1,000 ML 125 ML IV CONT ×2 (10:45→11:42)
--- NOTE | 2021-10-09 12:17 | PM.IMHP ---
H&P: HPI History of Present Illness Date/Time: 10/09/21 12:17 Chief Complaint: Term Narrative: This patient is a 20-year-old female who presents for a repeat delivery. She this a multiple the previous . She is 39 weeks gestation. We have agreed to perform repeat . She understands risks, benefits, and alternatives. She understands that injuries may occur that result in hospitalization, more surgery, severe illness. She understands risk of hemorrhage and infection. She denies any nausea, vomiting, fever, chills. She denies any chest pain or shortness of breath. Review of Systems Review of Systems: All systems reviewed & are unremarkable except as noted in HPI and below Constitutional: Constitutional: Denies chills, Denies fatigue, Denies fever(s) and Denies weakness Eyes: Eyes: Denies blurry vision, Denies change in vision, Denies loss of peripheral vision, Denies loss of vision, Denies other visual disturbances and Denies eye pain ENT: Denies vertigo, Denies dizziness, Denies hearing loss, Denies mouth pain, Denies nasal obstruction, Denies neck mass and Denies neck pain Cardiovascular: Cardiovascular: Denies chest pain, Denies diaphoresis, Denies syncope, Denies leg edema and Denies dyspnea Respiratory: Respiratory: Denies chest congestion, Denies cough, Denies hemoptysis, Denies dyspnea and Denies wheezing Gastrointestinal: Gastrointestinal: Denies abdominal pain, Denies constipation, Denies diarrhea, Denies nausea and Denies vomiting Genitourinary: Genitourinary: Denies hematuria, Denies change in libido, Denies nocturia, Denies genital lesions, Denies flank pain and Denies urinary urgency Musculoskeletal: Musculoskeletal: Denies abnormal gait, Denies back pain, Denies myalgias, Denies arthralgias, Denies joint swelling, Denies muscle weakness and Denies neck pain Integumentary/Breasts: Skin/Breast: Denies swelling, Denies breast pain, Denies breast mass, Denies dry skin, Denies nipple discharge, Denies unusual bruising and Denies jaundice Neurologic: Denies Neuro-related abnormal movements, Denies Abnormal speech present, Denies abnormal gait, Denies behavioral changes, Denies confusion, Denies vertigo, Denies dizziness, Denies syncope, Denies loss of vision, Denies memory loss, Denies convulsions and Denies weakness Psychiatric: Psychiatric: Denies abnormal sleep pattern, Denies behavioral changes, Denies change in libido, Denies confusion, Denies depression, Denies anhedonia and Denies memory loss Endocrine: Endocrine: Reports no additional endocrine complaints, Denies change in libido and Denies fatigue Hematologic/Lymphatic: Hematologic/Lymphatic: Reports no additional hematologic/lymphatic complaints Allergic/Immunologic: Allergic/Immunologic: Reports no additional allergic/immunologic complaints and Denies wheezing PMFSH Past Medical History Medical History Healthy adult Surgical History Surgical History History of delivery Family History Family History (Updated 10/06/21 @ 14:05 by Arron Vega RN) Grandparent Diabetes mellitus Grandparent Cancer of lung Breast cancer in female Social History Social History Years smoked: 2 Smoking status: Never smoker Tobacco type: cigarettes Second hand tobacco smoke exposure: Yes (Pt's mother smokes) Substance use: never Gender identity (if verbalized by the patient): Female Spiritual care concerns: No Meds Home Medications and Allergies Home Medications Medication Instructions Recorded Confirmed Type ferrous sulfate 142 mg (45 mg 1 mg PO DAILY 08/12/19 10/09/21 History iron) tablet,extended release (Slow Fe) vit no.133-ferrous 1 tablet PO DAILY 08/12/19 10/09/21 History fumarate 28 mg-folic acid 800 mcg
--- NOTE | 2021-10-09 12:19 | WPDHPUPDATE1 ---
History and Physical Update Update Date/Time: 10/09/21 12:19 History and Physical has been reviewed, including an updated exam of the patient. There are NO changes in the patient's condition. Risks, benefits, and alternatives have been discussed and questions answered. Patient agrees to proceed with procedure.
[2021-10-09] MEDS: ceFAZolin 3 GM/D5W 100 ML 100 ML IVPB (12:23)
--- NOTE | 2021-10-09 12:51 | WPDANESEPPF ---
Anes - Initial Pre Proc Eval Procedure: Operation Date: 10/09/21 12:00 Proposed Procedures p Repeat Section - Aroldo Hurst MD Date/Time: 10/09/21 12:51 Surgeon: Aroldo Hurst MD Pre Op Diagnosis: Previous / preadmit Patient Data Age: 20 Gender: F Height: 1.57 m Weight: 128 kg Last Vital Signs Temp 36.6 C 10/09/21 10:55 Pulse 89 10/09/21 10:50 BP 123/70 10/09/21 10:50 O2 Del Method Room Air 10/09/21 10:42 Allergies Allergy/AdvReac Type Severity Reaction Status Date / Time No Known Allergies Allergy Mild Verified 10/06/21 14:01 Home Medications Medication Instructions Recorded Confirmed Type ferrous sulfate 142 mg (45 mg 1 mg PO DAILY 08/12/19 10/09/21 History iron) tablet,extended release (Slow Fe) vit no.133-ferrous 1 tablet PO DAILY 08/12/19 10/09/21 History fumarate 28 mg-folic acid 800 mcg tablet () Patient hx anesthesia problems: none Family hx anesthesia problems: none Results Review: All pre-operative results and documents have been reviewed as part of the pre-operative evaluation. [facility] Past Medical History Medical History Healthy adult Surgical History Surgical History History of delivery Family History Family History (Updated 10/06/21 @ 14:05 by Arron Vega RN) Grandparent Diabetes mellitus Grandparent Cancer of lung Breast cancer in female Social History Social History Years smoked: 2 Smoking status: Never smoker Tobacco type: cigarettes Second hand tobacco smoke exposure: Yes (Pt's mother smokes) Substance use: never Gender identity (if verbalized by the patient): Female Spiritual care concerns: No Anes - Eval Final PreProcedure Day of Procedure 10/09/21 12:51 Patient weight: super morbidly obese Heart: regular rate and rhythm Lungs: clear to auscultation and normal air movement Airway: Mallampati scale class II Neurological: alert and oriented Last oral intake: >/= 8 hours ASA classification: III Emergent: no Anesthetic plan: proceed Anesthesia type and monitoring: regional spinal and standard monitoring Results Review: All pre-operative results and documents have been reviewed as part of the pre-operative evaluation. Informed Consent: The patient's anesthetic plan and its attendant risks and benefits were discussed with the patient/family/POA. Questions were solicited and answers provided to the satisfaction of the patient/family/POA.
--- NOTE | 2021-10-09 13:43 | W.PM.PROC2 ---
Procedure Note - Detailed Date of Procedure 10/09/21 Pre-op Diagnosis Previous , term gestation Post-op Diagnosis Same Procedure Performed Low-transverse section Surgeon Aroldo Hurst MD Anesthesia Spinal Findings Normal gestational maternal anatomy, average size , normal Apgars. Description of Procedure The patient was taken the operating room. She was prepped and draped in dorsal supine position with a leftward tilt. This was done after spinal anesthetic was applied. A low-transverse skin incision was made and carried down till of the fascia with the knife. The fascial incision was made with the knife. The fascial incision was extended laterally with Zarate scissors. The fascia was tented upward superiorly and inferiorly the rectus muscles were dissected off bluntly. The rectus muscles were the midline. The preperitoneal fat and peritoneum were dissected open bluntly at the superior aspect of the rectus muscles. The peritoneal incision was extended superior and inferior with good position of bladder. The uterine incision was made with a scalpel down to the level of the amniotic cavity. The amniotic cavity was entered bluntly. The infant was delivered. The cord was clamped and cut and the infant was handed off to waiting pediatric staff. Cord bloods were obtained. The placenta was removed manually. The uterus was exteriorized. The uterus was cleared of all clots, debris and membranes. The uterus was closed in 0 Vicryl running lock fashion. An imbricating over a was placed along the incision line as well. The uterus was returned to the abdomen. The gutters were cleared of all clots and debris. The fascia was closed with 0 Vicryl running fashion. The subcutaneous tissue was irrigated pinpoint bleeders were cauterized. The skin was closed with subcuticular absorbable betty. The skin incision line was covered with glue. The patient tolerated the procedure well. She has taken recovery room in stable condition. Sponge lap and needle counts were correct x2. Estimated Blood Loss 350 Complications No immediate complications Condition Stable Disposition PACU
[2021-10-09] MEDS: KETOROLAC 30 MG/ML VIAL (*BKC) 15 MG IV PUSH (13:56)
[2021-10-09] MEDS: OXYTOCIN 30 UNITS/NS 500 ML 30 UNITS/500 ML BAG 125 UNITS IV CONT (14:36)
[2021-10-09] MEDS: DOCUSATE SODIUM 100 MG CAPSULE PO (17:48)
[2021-10-09] MEDS: DEXTROSE 5%/0.45% SOD CHL 1,000 ML 125 ML IV CONT (18:33)
[2021-10-09] MEDS: IBUPROFEN 600 MG TABLET PO (18:53)
[2021-10-09] MEDS: HYDROcodone/acetaminophen (*CRX) 5-325 MG TABLET 1 TAB PO (22:40)
[2021-10-10 04:30] VITALS: BP 107/58; PULSE 82; RESP 16; TEMP 36.9; O2SAT 98
[2021-10-10] MEDS: IBUPROFEN 600 MG TABLET PO ×3 (04:58→18:44)
[2021-10-10 05:34] LABS: Basophils Percent Auto 0.4 % (0.2-1.2); Eosinophils Absolute Auto 0.1 K/mm3 (0-0.3); Eosinophils Percent Auto 1.6 % (0-4.4); Hematocrit 28.1 % (37.0-47.0); Immature Granulocyte Absolute 0.04 K/mm3 (0.00-0.031); Immature Granulocyte Percent A 0.5 % (0-0.5); Immature Platelet Fraction Pct 6.9 % (0.9-11.2); Lymphocytes Absolute Auto 1.57 K/mm3 (0.9-3.2); Lymphocytes Percent Auto 20.4 % (18.3-44.2); Mean Corpuscular Volume 87.5 fl (80-100); Mean Platelet Volume 11.8 fl (7.4-10.4); Monocytes Absolute Auto 0.6 K/mm3 (0.1-0.6); Monocytes Percent Auto 7.7 % (2.6-8.5); Neutrophils Absolute Auto 5.4 K/mm3 (1.3-6.7); Neutrophils Percent Auto 69.4 % (45.5-73.1); Platelet Count Result 145 k/mm3 (150-375); Red Blood Count 3.21 M/mm3 (4.2-5.4); Red Cell Distribution Width 15.9 % (11.5-14.5); White Blood Count 7.7 K/mm3 (4.5-10.0)
--- NOTE | 2021-10-10 07:30 | WPDANLDPN2 ---
Anes-Prog Note L&D Date/Time: 10/10/21 07:30 Comfortable throughout: section Neuraxial method: spinal Epidural/Spinal procedure site: clean & non-tender Neuro status: Neuro function grossly intact. Cardiovascular status: normal Respiratory status: normal Airway patency: baseline Mental status: baseline Post-Op hydration status: normal Vital Signs: Last Vital Signs Temp 36.9 C 10/10/21 04:30 Pulse 82 10/10/21 04:30 Resp 16 10/10/21 04:30 BP 107/58 L 10/10/21 04:30 Pulse Ox 98 10/10/21 04:30 O2 Del Method Room Air 10/10/21 04:30 Pain score (VAS): 04/10 I/O: Intake & Output 10/09/21 10/09/21 10/10/21 15:59 23:59 07:59 Intake Total 1999 740 500 Output Total 243 092 6283 Balance 8106 -292 -461 Post-procedural complaints: none Patient feedback: Patient satisfied with anesthetic care.
--- NOTE | 2021-10-10 07:30 | WPDANLDNPN2 ---
Anes-Prog Note L&D-Neuraxial Date/Time: 10/10/21 07:30 Neuraxial medications: intrathecal PF morphine Opiod-related complaints: none Patient feedback: Patient satisfied with post-operative pain management.
[2021-10-10 08:10] VITALS: BP 104/57; PULSE 87; RESP 16; TEMP 36.3; O2SAT 99
[2021-10-10] MEDS: DOCUSATE SODIUM 100 MG CAPSULE PO ×2 (08:12→15:24)
[2021-10-10] MEDS: MULTIVIT/MIN/PREN/FOL AC/IRON TABLET 1 TAB PO (08:12)
[2021-10-10] MEDS: POLYSACCHARIDE IRON COMPLEX 150 MG CAPSULE PO ×2 (08:12→15:24)
[2021-10-10] MEDS: HYDROcodone/acetaminophen (*CRX) 5-325 MG TABLET 1 TAB PO ×4 (08:12→15:27)
--- NOTE | 2021-10-10 08:50 | PC.NURSE ---
[id number] Introductions were made, then consulted with patient to assess needs related to . Mother led the conversation with her experience feeding her so far. Mother works well with her [with encouragement and education]. Mother voiced understanding of the benefits of skin to skin (unwrapping infant and placing vertically on her chest), responsive feeding and how to watch for early feeding signs, frequency of feeding on demand about every 8-12 times in 24 hours (every 2-3 hours), milk production, duration of feeding, signs of adequate intake/output and how to record on the feeding sheet. Mother has demonstrated responsive feedings and encouraged if it has been 2 -3 hours since the start of the last , to call if infant does not latch or there is discomfort with . Reported to the primary RN.
--- NOTE | 2021-10-10 09:02 | PM.OBPNVD ---
OB - PN: Subj Subjective Date/time seen: 10/10/21 09:02 Patient comments: no complaints, pain well controlled, tolerating diet and flatus present OB - PN: Obj Data Labs CBC & Chem 7: 10/10/21 05:01 Labs: Laboratory Results - last 24 hr 10/10/21 05:01 WBC 7.7 RBC 3.21 L Hgb 9.0 L Hct 28.1 L MCV 87.5 MCH 28.0 MCHC 32.0 RDW 15.9 H Plt Count 145 L MPV 11.8 H Immature Gran % (Auto) 0.5 Neut % (Auto) 69.4 Lymph % (Auto) 20.4 [place] % (Auto) 7.7 Eos % (Auto) 1.6 Baso % (Auto) 0.4 Lymph # (Auto) 1.57 [place] # (Auto) 0.6 Eos # (Auto) 0.1 Baso # (Auto) 0.0 Abs Immat Gran (auto) 0.04 H Absolute Neuts (auto) 5.4 Absolute Nucleated RBC 0.0 Nucleated RBC % 0.0 % Immature Plt Fraction 6.9 OB - PN A/P Plan day: 1 Comments: Post Op LTCS - no problems, routine recovery Time Spent With Patient Time: Total time spent is greater than 50% in coordination of care (as documented) at patient's floor/unit and/or counseling patient: Exam Const: General: cooperative, healthy appearing, comfortable and no acute distress Resp: Auscultation: no crackles, no rales, no rhonchi and no wheezes Cardio: Rhythm: regular rhythm Heart sounds: no click and no murmurs GI: Inspection: non-distended Auscultation: normal bowel sounds Extrem: General: normal to inspection, no pedal edema and no calf tenderness
--- NOTE | 2021-10-10 10:19 | PC.NURSE ---
[id number] Consulted with patient to assess needs related to . Mother led conversation with her experience with feeding baby so far. Mother works well with her . Reviewed working with infant, breast, nipples and how to protect the nipples with an optimal deep latch, good positioning, and good hand washing. Encouraged understanding the benefits of skin to skin, responding to feeding cues, frequencies of feeding 8-12 times in 24 hours (approximately 2-3 hours), duration of feedings, milk production, intake/output feeding sheet and signs of adequate intake encouraging swallowing at the breast. Reviewed positioning and alignment, supporting breast, off-centered (asymmetrical latch) and leading with the chin with big open wide gape. Infant latched optimally to the right breast in football position with minimal assistance from RN. Education given to mother of how to visualize suck/swallow ratios, actively drinking at the breast, and maintaining a deeper latch. was able to maintain latch without discomfort to mother. Nipple care reviewed with optimal deeper latch and good positioning. Mother voiced understanding of the education shared, calling for assistance if the infant does not latch or if there is discomfort with . Reported to the primary RN.
[2021-10-10 11:52] VITALS: BP 105/56; PULSE 85; RESP 16; TEMP 36.4; O2SAT 99
[2021-10-10] MEDS: HYDROcodone/acetaminophen (*CRX) 10-325 MG TABLET 1 TAB PO ×2 (18:45→22:38)
[2021-10-10] MEDS: SIMETHICONE 80 MG TAB.CHEW PO ×2 (19:02→22:38)
[2021-10-10 19:33] VITALS: BP 129/83; PULSE 91; RESP 16; TEMP 36.6
[2021-10-11] MEDS: SIMETHICONE 80 MG TAB.CHEW PO ×2 (03:10→07:08)
[2021-10-11] MEDS: HYDROcodone/acetaminophen (*CRX) 10-325 MG TABLET 1 TAB PO ×2 (03:10→07:08)
[2021-10-11] MEDS: IBUPROFEN 600 MG TABLET PO (03:11)
--- NOTE | 2021-10-11 07:35 | P.PNOB_ITS ---
OB - PN: Subj Subjective Date/time seen: 10/11/21 07:35 Patient comments: no complaints, pain well controlled, incisional pain, tolerating diet and flatus present OB - PN: Obj Data Labs CBC & Chem 7: 10/10/21 05:01 OB - PN A/P Plan day: 2 Plan: routine care Comments: POD#2 LTCS - no problems, Time Spent With Patient Time: Total time spent is greater than 50% in coordination of care (as documented) at patient's floor/unit and/or counseling patient: Exam Const: General: comfortable, no acute distress and alert Resp: Effort & Inspection: normal respiratory effort Auscultation: no c rackles, no rales and no rhonchi Cardio: Rate: regular rate Heart sounds: no click, no murmurs and no rubs GI: Inspection: non-distended GI Palp: No Tenderness to palpation present (GI) Auscultation: normal bowel sounds Other: Incision - CDI Extrem: General: normal to inspection, no pedal edema and no calf tenderness
--- NOTE | 2021-10-11 07:36 | PM.OBDSVD ---
DS: Admitting Diagnosis Discharge Date 10/11/21 Admitting Diagnosis term OB - DS: Summary OB Procedures : NST OB Procedures Intrapartum: OB Procedures: : None Peripartum Data Procedures: Procedures Operation Date: 10/09/21 12:00 Actual Procedure Side Surgeon p Repeat Section Not Applicable Aroldo Hurst MD Time Spent with Patient Time attestation: Total time spent providing and/or coordinating discharge services: Discharge Plan Discharge Discharging Clinician: Aroldo Hurst Patient Disposition: Home, Self-Care Activity: pelvic rest Diet: regular Patient Instructions: Antibiotic Form Stand Alone Forms: General Discharge Information Follow-up/Referrals: Aroldo Hurst MD [Physician] - Discharge Medications: New hydrocodone-acetaminophen 5-325 mg tablet 1 tablet PO Q4H PRN (Reason: pain) Qty: 25 0RF Continued 28-800 mg-mcg Tablet 1 tablet PO DAILY Slow Fe 142 mg (45 mg iron) Tablet Extended Release 1 mg PO DAILY Date of admission: 10/09/21 10:00 Primary Care Provider: Merle,Gomez Silva Admitting Provider: Aroldo Hurst Attending physician on admission: Aroldo Hurst Condition: Stable
[2021-10-11 08:10] VITALS: BP 105/58; PULSE 86; RESP 18; TEMP 37.2; O2SAT 100
[2021-10-11] MEDS: POLYSACCHARIDE IRON COMPLEX 150 MG CAPSULE PO (08:32)
[2021-10-11] MEDS: MULTIVIT/MIN/PREN/FOL AC/IRON TABLET 1 TAB PO (08:32)
[2021-10-11] MEDS: DOCUSATE SODIUM 100 MG CAPSULE PO (08:32)
--- NOTE | 2021-10-11 16:56 | PC.NURSE ---
[id number] Mother led the conversation with her experience and plan to feed her so far and her ability to independently latch optimally without discomfort. Mother is her infant effectively on the right breast using football position and is keeping actively nursing at the breast watching for good suck/swallowing. Mother is feeding appropriately for growth of infant and understands stimulating infant to eat if needed. Infant has had appropriate feedings in the last 24 hours meets the outcomes for weight, output and jaundice at this time. Mother states she is confident to continue effectively breastfeed her infant at home or when to call for assistance and denies any additional assistance or education at this time. Reinforced understanding of milk production, transition of milk, signs of adequate intake, prevention/relief of engorgement, responsive after visualizing feeding cues, the different methods of stimulating to breastfeed 2-3 hours after the start of the last feeding, community resources, medication information reviewed per [facility] and when to call a provider using the resource of the mom and baby guide/[facility] website. Mother voiced understanding of the education shared. Reported to the primary RN.
[2021-10-12 07:58] VITALS: BP 113/71; PULSE 73; RESP 73; TEMP 36.8; O2SAT 100
== END 2021-10-11 10:26 | disposition home or self-care (01) | DRG 788 ==
LOC: ANHLDR 10:02 → ANHOB2 17:46
PROVIDERS: Admitting Provider Obstetrics & Gynecology; PCP Internal Medicine; Visit Provider Obstetrics & Gynecology
PROC: 10D00Z1 Extraction of Products of Conception, Low, Open Approach (ICD-10-PCS; CPT 59514; principal; 2021-10-09 12:00)
DX: O34.219 Maternal care for unspecified type scar from previous cesarean delivery (principal); O99.214 Obesity complicating childbirth; E66.01 Morbid (severe) obesity due to excess calories; Z3A.37 37 weeks gestation of pregnancy; Z37.0 Single live birth
CPT/HCPCS: 36415; 85025; 85027; 85055; 86592; 86850; 86900; 86901; A9270; J0131; J0690; J1885; J2274; J2590; J7120